=== PATIENT | female | born 1960 | race Caucasian/White ===

== ENCOUNTER → 2017-06-18 09:07 | Outpatient (CLI) | payer OTHER | END | disposition home or self-care (01) | LOC: LAB 08:55 | DX: N91.1 Secondary amenorrhea (principal) ==

== ENCOUNTER 2017-06-18 11:45 | Outpatient (CLI) | payer OTHER | END 2017-06-18 13:05 | disposition home or self-care (01) | LOC: MAMO-SONO 11:45 | DX: Z12.31 Encounter for screening mammogram for malignant neoplasm of breast (principal); N60.11 Diffuse cystic mastopathy of right breast ==

== ENCOUNTER 2018-07-07 10:45 | Outpatient (CLI) | payer OTHER | END 2018-07-07 10:53 | disposition home or self-care (01) | LOC: MAMO-SONO 10:45 | DX: Z12.31 Encounter for screening mammogram for malignant neoplasm of breast (principal); N60.11 Diffuse cystic mastopathy of right breast ==

== ENCOUNTER 2018-12-22 11:17 | Inpatient (IN) | payer OTHER ==
[~2018-12-22] VITALS: Ht 152.4 cm; Wt 147.9 kg
[2018-12-22] MEDS ORDERED: FLUTICASONE (11:30)
[2018-12-22] MEDS ORDERED: ZYRTEC10 M3 (11:31)
[2018-12-22] MEDS ORDERED: TUSSI-PRES B LIQ5 ML (11:31)
--- NOTE | 2018-12-22 11:31 | NUR ---
SE RECIBE PTE ALERTA Y ORIENTADA X3,REFIERE TOS PERSISTENTE ,REFIERE ANTONETTE DEYANIRA AL NEUMOLOGA LE RECETO MEDICAMENTOS NO COLBERT TENIOD MEJORIA.
--- NOTE | 2018-12-22 13:13 | NUR ---
SE ORIENTA A PTE SOBRE PROCESO DE VENOPUNCION, ANTON DE MUESTRAS, ADMINISTRACION DE MED PO, IV & IH. PTE REFIERE ENTENDER INF JAMAR POR RN DE SHYO. SE MANTIENE PTE BAJO OBSERVACION EN ESPERA DE ESTUDIO X RAY Y MUESTRAS DE ABG.
--- NOTE | 2018-12-22 19:29 | NUR ---
SE COLOCA CANULA NASAL A 3 LT, POR ORDEN MEDICA.
--- NOTE | 2018-12-23 10:45 | NUR ---
SE RECIBE PTE DIANA Y ORIENTADA X3 EN USMAN CON BARANDA SELEVADAS AL MOMENTO. PTE YOVANNY DE DOLOR SE OBSERVA CON H/L COLOCA EL CUAL SE ENCUENTRA PATENTE YOVANNY DE EDEMA Y ENROJECIMIENTO, CN COLOCADA A 3 LTS. PTE CON TERAPIAS CADA 4 HORAS Y SOLUMEDROL 80MG IV CADA 6HRS. PTE EN ESPERA DE CONSULTA CON MEDICINA INTERNA. PTE SE CONTINUA MONITORIANDO POR CAMBIOS.
[2018-12-23] MEDS ORDERED: FLONASE16 GM NASAL (16:55)
== END 2018-12-29 15:27 | disposition home or self-care (01) | DRG 202 ==
LOC: ER 11:17 → SEC-K 12-23 12:29 → MEDI 12-23 12:29
PROVIDERS: ADMIT Specialist
PROC: 3E0F7GC Introduction of Other Therapeutic Substance into Respiratory Tract, Via Natural or Artificial Opening (ICD-10-PCS; principal; 2018-12-23)
PROC: 4A033R1 Measurement of Arterial Saturation, Peripheral, Percutaneous Approach (ICD-10-PCS; 2018-12-23)
PROC: BW24ZZZ Computerized Tomography (CT Scan) of Chest and Abdomen (ICD-10-PCS; 2018-12-23)
DX: J45.31 Mild persistent asthma with (acute) exacerbation (principal); J21.8 Acute bronchiolitis due to other specified organisms; A49.3 Mycoplasma infection, unspecified site; D72.828 Other elevated white blood cell count; F41.8 Other specified anxiety disorders; M06.89 Other specified rheumatoid arthritis, multiple sites; L40.8 Other psoriasis

== ENCOUNTER 2020-03-29 15:40 | Outpatient (CLI) | payer OTHER ==
[~2020-03-29 15:40] MED LIST: FLONASE16 GM NASAL; FLUTICASONE; TUSSI-PRES B LIQ5 ML; ZYRTEC10 M3
== END 2020-03-30 17:03 | disposition home or self-care (01) ==
LOC: MAMO-SONO 15:40
PROVIDERS: ATTEND Obstetrics & Gynecology
DX: Z12.31 Encounter for screening mammogram for malignant neoplasm of breast (principal); N60.11 Diffuse cystic mastopathy of right breast; N60.12 Diffuse cystic mastopathy of left breast

== ENCOUNTER → 2021-06-13 09:04 | Outpatient (CLI) | payer OTHER | END | disposition home or self-care (01) | LOC: NUCLEAR 09:00 | PROVIDERS: ATTEND Specialist | DX: G45.1 Carotid artery syndrome (hemispheric) (principal) ==

== ENCOUNTER 2021-06-13 10:32 | Outpatient (CLI) | payer OTHER | END 2021-06-13 10:42 | disposition home or self-care (01) | LOC: RAD 10:32 | PROVIDERS: ATTEND Specialist | DX: E03.9 Hypothyroidism, unspecified (principal); I11.0 Hypertensive heart disease with heart failure; J45.998 Other asthma ==

== ENCOUNTER → 2022-01-13 | Emergency (ER) | payer OTHER ==
[~2022-01-13] VITALS: Ht 160 cm; Wt 65.3 kg
== END | disposition home or self-care (01) ==
LOC: ER 19:55
DX: S00.93XA Contusion of unspecified part of head, initial encounter (principal); S00.83XA Contusion of other part of head, initial encounter; S70.01XA Contusion of right hip, initial encounter; S80.01XA Contusion of right knee, initial encounter; W18.30XA Fall on same level, unspecified, initial encounter; Y93.41 Activity, dancing; Y92.89 Other specified places as the place of occurrence of the external cause; Y99.9 Unspecified external cause status

== ENCOUNTER 2022-06-11 10:44 | Outpatient (CLI) | payer OTHER | END 2022-06-11 10:46 | disposition home or self-care (01) | LOC: MAMO-SONO 10:44 | PROVIDERS: ATTEND Obstetrics & Gynecology | DX: Z12.31 Encounter for screening mammogram for malignant neoplasm of breast (principal); N60.11 Diffuse cystic mastopathy of right breast ==

== ENCOUNTER 2023-06-25 13:49 | Outpatient (CLI) | payer OTHER | END 2023-06-25 13:59 | disposition home or self-care (01) | LOC: MAMO-SONO 13:49 | PROVIDERS: ATTEND Obstetrics & Gynecology | DX: N60.11 Diffuse cystic mastopathy of right breast (principal) ==

== ENCOUNTER 2023-12-28 17:07 | Emergency (ER) | payer OTHER ==
[~2023-12-28] VITALS: Ht 152.4 cm; Wt 64.4 kg
[2023-12-28 18:32] LABS: HEMATOCRIT 37.7 % (36.0-45.00); HEMOGLOBIN 12.6 g/dL (12.0-15.00); MEAN CELL VOLUME 92.2 fL (80.00-100.00); MEAN CORPUSCULAR HEMOGLOBIN 30.9 pg (27.00-32.0); MEAN CORPUSCULAR HGB CONC 33.5 g/dl (32.0-36.0); PLATELET COUNT 211 K/uL (150-450); RED BLOOD COUNT 4.09 M/uL (4.00-6.00); RED CELL DISTRIBUTION WIDTH 14.9 % (11.5-14.5)
[2023-12-28 18:47] LABS: PH,URINE 5.5 (5.0-8.0); URINE APPEARANCE Cloudy; URINE BILIRRUBIN Negative (NEGATIVE); URINE BLOOD Moderate; URINE COLOR Yellow; URINE GLUCOSE Negative (NEGATIVE); URINE LEUKOCYTE Moderate; URINE NITRATE Negative; URINE UROBILINOGEN 0.2 E.U./dl
[2023-12-28 18:51] LABS: URINE BACTERIA 4099.8 uL (0.0-1933); URINE EPITHELIAL CELLS 125.3 uL (0.0-38.8); URINE RBC 19.3 uL (0.0-20.8); URINE WBC 442.6 uL (0.0-23.2)
[2023-12-28 18:52] LABS: ALBUMIN 3.4 gm/dL (3.4-5.0); BILIRUBIN TOTAL 0.72 mg/dL (0.3-1.2); CALCIUM 8.6 mg/dL (8.5-10.1); CREATININE SERUM 1.08 mg/dL (0.55-1.02); GFR 51.57; GLOBULINA 4.1 G/DL (2.4-3.5); POTASSIUM 3.67 mEq/L (3.5-5.1); TOTAL PROTEIN 7.5 gm/dL (6.4-8.2)
[2023-12-28 19:12] LABS: URINE PROTEIN 100 (NEGATIVE)
[2023-12-28] MEDS ORDERED: DEXAMETHASONE SODIUM PHOSPHATE 4 MG/ML VIAL IM ONE (19:15)
== END 2023-12-28 19:41 | disposition home or self-care (01) ==
LOC: ER 17:08
PROVIDERS: General Practice
DX: B34.9 Viral infection, unspecified (principal); N39.0 Urinary tract infection, site not specified; J45.909 Unspecified asthma, uncomplicated; L40.8 Other psoriasis; M06.8A Other specified rheumatoid arthritis, other specified site; Z20.822 Contact with and (suspected) exposure to COVID-19

== ENCOUNTER 2024-01-02 11:17 | Emergency (ER) | payer OTHER ==
[~2024-01-02] VITALS: Ht 152.4 cm; Wt 64.4 kg
[2024-01-02] MEDS ORDERED: ROSUVASTATIN CA40 MG PO (11:32)
[2024-01-02] MEDS ORDERED: DIPHENHYDRAMINE HCL 50 MG/ML VIAL 1ML IM STA (12:06)
[2024-01-02] MEDS ORDERED: METHYLPREDNISOLONE SOD SUCC 125 MG VIAL IM STA (12:07)
[2024-01-02] MEDS ORDERED: BENADRYL ALLERG25 MG PO (13:28)
[2024-01-02] MEDS ORDERED: MEDROLPACK PO (13:28)
== END 2024-01-02 14:05 | disposition home or self-care (01) ==
LOC: ER 11:18
DX: B08.8 Other specified viral infections characterized by skin and mucous membrane lesions (principal); J45.909 Unspecified asthma, uncomplicated; M06.8A Other specified rheumatoid arthritis, other specified site
CPT/HCPCS: 96372; 99282; J1200; J3490

== ENCOUNTER 2024-01-05 13:07 | Outpatient (CLI) | payer OTHER ==
[~2024-01-05 13:07] MED LIST changes: +BENADRYL ALLERG25 MG PO; +MEDROLPACK PO; +ROSUVASTATIN CA40 MG PO
[2024-01-05 13:55] LABS: HEMATOCRIT 42.2 % (36.0-45.00); HEMOGLOBIN 14.1 g/dL (12.0-15.00); MEAN CELL VOLUME 91.5 fL (80.00-100.00); MEAN CORPUSCULAR HEMOGLOBIN 30.5 pg (27.00-32.0); MEAN CORPUSCULAR HGB CONC 33.4 g/dl (32.0-36.0); PLATELET COUNT 295 K/uL (150-450); RED BLOOD COUNT 4.62 M/uL (4.00-6.00); RED CELL DISTRIBUTION WIDTH 15.1 % (11.5-14.5)
[2024-01-05 14:17] LABS: INR 0.97; PARTIAL THROMBOPLASTIN TIME 23.3 SECONDS (22.0-34.0); PROTHROMBIN TIME 10.2 SECONDS (9.0-11.5)
== END 2024-01-05 13:12 | disposition home or self-care (01) ==
LOC: LAB 13:07
PROVIDERS: ATTEND Specialist
DX: D64.9 Anemia, unspecified (principal); D68.8 Other specified coagulation defects; A90 Dengue fever [classical dengue]

== ENCOUNTER 2025-01-05 14:42 | Outpatient (CLI) | payer OTHER | END 2025-01-05 14:52 | disposition home or self-care (01) | LOC: MAMO-SONO 14:42 | PROVIDERS: ATTEND Obstetrics & Gynecology | DX: N60.11 Diffuse cystic mastopathy of right breast (principal); Z12.31 Encounter for screening mammogram for malignant neoplasm of breast ==